=== PATIENT | female | born 1950 | race Caucasian/White ===

== ENCOUNTER 2016-06-23 11:35 | Observation (INO) | payer BC ==
[~2016-06-23] VITALS: Ht 154.9 cm; Wt 74.6 kg
[2016-06-23] MEDS: IV NORMAL SALINE 1000ML BAG 1,000 ML IV SCH (01:00)
[~2016-06-23 11:35] MED LIST: CITA20TA9 PO; LEVO50TA PO; LISI2.5T PO; METO25TA4 PO; OXYB5TAB7 PO
[2016-06-23] MEDS ORDERED: ASPI81TA2 PO (12:23)
[2016-06-23] MEDS ORDERED: LEVO75TA5 PO (12:24)
[2016-06-23] MEDS ORDERED: IV NORMAL SALINE 1000ML BAG 1,000 ML IV SCH (12:30)
[2016-06-23] MEDS ORDERED: ONDANSETRON PF 4 MG/2 ML VIAL. IV ONE (12:30)
[2016-06-23] MEDS ORDERED: FENTANYL PF 100 MCG/2 ML VIAL. IV PRN (12:30)
[2016-06-23] MEDS ORDERED: ASPIRIN 81 MG TAB.CHEW PO ONE (12:30)
--- NOTE | 2016-06-23 12:30 | PHYS DOC ---
Past Medical History Past Medical History: Hypothyroid, [place], TIA Additional Past Medical Histor: PFO CLOSURE Past Surgical History: , Hysterectomy, Knee Replacement, Tonsillectomy Additional Past Surgical Histo: RIGHT KNEE REPLACEMENT Alcohol Use: Occasionally Drug Use: None Adult General Chief Complaint Chief Complaint: CHEST PAIN HPI HPI Patient is a 65 year old female who presents with complaint of left-sided chest pain that started approximately 3 hours prior to arrival. Patient states that she was at work and started getting left-sided chest pain which has been intermittent. Patient states that the pains last for a few seconds and go away. Patient has associated shortness of breath. Patient states that these symptoms come on at rest. The patient was recently admitted to the hospital on April 2016 and diagnosed within NSTEMI. At that time the patient had cardiac catheterization which showed findings consistent with Takotsubo Syndrome but no blockages requiring stents. Patient was placed on aspirin. Patient states that she has been taking her aspirin daily but has not taken any yet today. Patient states that currently she is pain-free but has been having intermittent chest pains off and on throughout the hour. Patient denies any recent illnesses or fever. Patient states that her pain level reaches 7 out of 10 with each episode. Patient denies any exacerbating factors. Review of Systems Review of Systems Constitutional: Denies fever or chills [] Eyes: Denies change in visual acuity, redness, or eye pain [] HENT: Denies nasal congestion or sore throat [] Respiratory: Shortness of breath [] Cardiovascular: Chest pain [] GI: Denies abdominal pain, nausea, vomiting, bloody stools or diarrhea [] : Denies dysuria or hematuria [] Musculoskeletal: Denies back pain or joint pain [] Integument: Denies rash or skin lesions [] Neurologic: Denies headache, focal weakness or sensory changes [] Current Medications Current Medications Current Medications Medications (Trade) Dose Ordered Sig/Rodrigue Start Time Stop Time Status Last Admin Dose Admin Aspirin (Children'S Aspirin) 324 mg 1X ONCE 06/23/16 12:30 06/23/16 12:31 DC 06/23/16 12:30 324 MG Fentanyl Citrate 50 mcg 50 mcg PRN Q15MIN PRN 06/23/16 12:30 06/24/16 12:29 06/23/16 15:03 50 MCG Nitroglycerin (Nitrostat) 0.4 mg PRN Q5MIN PRN 06/23/16 12:30 06/24/16 12:29 06/23/16 14:11 0.4 MG Ondansetron HCl (Zofran) 4 mg 1X ONCE 06/23/16 12:30 06/23/16 12:31 DC Sodium Chloride (Iv Sodium Chloride 0.9% 1000ml Bag) 1,000 ml @ 100 mls/hr Q10H 06/23/16 12:30 06/23/16 22:29 06/23/16 15:05 100 MLS/HR Allergies Allergies Allergies Coded Allergies Type Severity Reaction Last Updated Verified No Known Drug Allergies 04/30/16 No Physical Exam Physical Exam Constitutional: Well developed, well nourished, no acute distress, non-toxic appearance. [] HENT: Normocephalic, atraumatic, bilateral external ears normal, oropharynx moist, no oral exudates, nose normal. [] Eyes: PERRLA, EOMI, conjunctiva normal, no discharge. [] Neck: Normal range of motion, no tenderness, supple, no stridor. [] Cardiovascular:Heart rate regular rhythm, no murmur [] Lungs & Thorax: Bilateral breath sounds clear to auscultation [] Abdomen: Bowel sounds normal, soft, no tenderness, no masses, no pulsatile masses. [] Skin: Warm, dry, no erythema, no rash. [] Back: No tenderness, no CVA tenderness. [] Extremities: No tenderness, no cyanosis, no clubbing, ROM intact, no edema. [] Neurologic: Alert and oriented X 3, normal motor function, normal sensory function, no focal deficits noted. [] Psychologic: Affect normal, judgement normal, mood normal. [] Current Patient Data Vital Signs Vital Signs Date Time Temp Pulse Resp B/P Pulse Ox O2 Delivery O2 Flow Rate FiO2 06/23/16 14:30 58 20 113/63 96 06/23/16 11:53 98.4 Room Air 98.4 Lab Values Laboratory Tests Test 06/23/16 13:45 White Blood Count 4.8x10^3/uL (4.0-11.0) Red Blood Count 4.73x10^6/uL (3.50-5.40) Hemoglobin 13.6g/dL (12.0-15.5) Hematocrit 40.4% (36.0-47.0) Mean Corpuscular Volume 85fL (79-100) Mean Corpuscular Hemoglobin 29pg (25-35) Mean Corpuscular Hemoglobin Concent 34g/dL (31-37) Red Cell Distribution Width 16.2% (11.5-14.5) H Platelet Count 198x10^3/uL (140-400) Neutrophils (%) (Auto) 53% (31-73) Lymphocytes (%) (Auto) 36% (24-48) Monocytes (%) (Auto) 7% (0-9) Eosinophils (%) (Auto) 2% (0-3) Basophils (%) (Auto) 1% (0-3) Neutrophils # (Auto) 2.6x10^3uL (1.8-7.7) Lymphocytes # (Auto) 1.8x10^3/uL (1.0-4.8) Monocytes # (Auto) 0.3x10^3/uL (0.0-1.1) Eosinophils # (Auto) 0.1x10^3/uL (0.0-0.7) Basophils # (Auto) 0.1x10^3/uL (0.0-0.2) Sodium Level 142mmol/L (136-145) Potassium Level 4.1mmol/L (3.5-5.1) Chloride Level 104mmol/L (98-107) Carbon Dioxide Level 28mmol/L (21-32) Anion Gap 10 (6-14) Blood Urea Nitrogen 17mg/dL (7-20) Creatinine 0.6mg/dL (0.6-1.0) Estimated GFR (Cockcroft-Gault) 101.0 Glucose Level 87mg/dL (70-99) Calcium Level 9.0mg/dL (8.5-10.1) Magnesium Level 2.2mg/dL (1.8-2.4) Total Bilirubin 0.4mg/dL (0.2-1.0) Direct Bilirubin 0.1mg/dL (0.0-0.2) Aspartate Amino Transferase (AST) 15U/L (15-37) Alanine Aminotransferase (ALT) 18U/L (14-59) Alkaline Phosphatase 69U/L (46-116) Creatine Kinase 88U/L (26-192) Creatine Kinase MB (Mass) 1.1ng/mL (0.0-3.6) Creatine Kinase MB Relative Index 1.3% (0-4) Troponin I Quantitative < 0.017ng/mL (0.000-0.055) FG-Dqv-A-Type Natriuretic Peptide 139pg/mL (0-124) H Total Protein 7.4g/dL (6.4-8.2) Albumin 3.9g/dL (3.4-5.0) Laboratory Tests 06/23/16 13:45 Laboratory Tests 06/23/16 13:45 EKG EKG Interpreted by me: Heart rate 60, sinus rhythm, prolonged QT intervals, normal axis, no acute ST/T-wave abnormalities present [] Radiology/Procedures Radiology/Procedures [facility] [address] [place] [address] IMAGING REPORT Signed PATIENT: BALDEMAR OLSEN ACCOUNT: [id number] : 1950 LOCATION: ER AGE: 65 SEX: F EXAM STATUS: REG ER ORD. PHYSICIAN: IRINEO VILLEGAS MD REASON: chest pain PROCEDURE: PORTABLE CHEST 1V Indication: Left-sided chest pain for 4 hours. Technique: AP upright portable chest radiograph was obtained. Comparison is from April 30, 2016. Findings: The lungs are clear. There is no pleural effusion. The heart is not enlarged. There is no heart failure. Bony structures are intact. There are mild degenerative changes at the right AC joint. Leads overlie the patient. Impression: No acute thoracic findings. DICTATED and SIGNED BY: SCOTT HERNANDEZ MD DATE: 06/23/16 1310 CC: IRINEO VILLEGAS MD; KEITH JENKINS ~ [] Course & Med Decision Making Course & Med Decision Making Pertinent Labs and Imaging studies reviewed. (See chart for details) Patient was given aspirin in the emergency department. The patient had multiple episodes of chest pain in the emergency department which has not resolved with treatment using fentanyl and nitroglycerin. Due to patient's persistent undifferentiated chest pain, the patient will need to be admitted for further evaluation. The patient was admitted to Dr. Muhammad under observation care. Vince Disclaimer Dragon Disclaimer This electronic medical record was generated, in whole or in part, using a voice recognition dictation system. Departure Departure Impression: Primary Impression: Chest pain Additional Impression: Takotsubo syndrome Disposition: ADMITTED INPATIENT Admitting Physician: Other Condition: STABLE Referrals: KEITH JENKINS (PCP) Problem Qualifiers Primary Impression: Chest pain Chest pain type: unspecified Qualified Code: R07.9 - Chest pain, unspecified IRINEO VILLEGAS MD Jun 23, 2016 12:30
--- NOTE | 2016-06-23 12:56 | EKG ---
[facility] [address] [place] [address] Test Date: 2016-06-23 Test Time: 11:50:50 Pat Name: BALDEMAR OLSEN Department: Room: Gender: F [employer]: : 1950 Requested By: IRINEO VILLEGAS Order Number: [id number] Reading MD: Measurements Intervals [place] Rate: 60 P: 31 [place]: 166 QRS: 5 QRSD: 84 T: 56 QT: 474 QTc: 479 Interpretive Statements SINUS RHYTHM QRS(T) CONTOUR ABNORMALITY CONSIDER ANTEROLATERAL MYOCARDIAL DAMAGE PROLONGED QT POSSIBLY ABNORMAL ECG RI6.01 No previous ECG available for comparison
--- NOTE | 2016-06-23 13:13 | RAD ---
Indication: Left-sided chest pain for 4 hours. Technique: AP upright portable chest radiograph was obtained. Comparison is from April 30, 2016. Findings: The lungs are clear. There is no pleural effusion. The heart is not enlarged. There is no heart failure. Bony structures are intact. There are mild degenerative changes at the right AC joint. Leads overlie the patient. Impression: No acute thoracic findings.
[2016-06-23] MEDS: NITROGLYCERIN SUBLINGUAL 0.4 MG BOTTLE OF 25. SL PRN ×2 (13:47→14:11)
[2016-06-23 13:54] LABS: BASO # 0.1 x10^3/uL (0.0-0.2); BASO % 1 % (0-3); EOS % 2 % (0-3); HEMATOCRIT 40.4 % (36.0-47.0); HEMOGLOBIN 13.6 g/dL (12.0-15.5); LYMPH # 1.8 x10^3/uL (1.0-4.8); LYMPH % 36 % (24-48); MEAN CORPUSCULAR HEMOGLOBIN 29 pg (25-35); MEAN CORPUSCULAR HGB CONC 34 g/dL (31-37); MEAN CORPUSCULAR VOLUME 85 fL (79-100); MONO % 7 % (0-9); NEUT % 53 % (31-73); PLATELET COUNT 198 x10^3/uL (140-400); RED BLOOD COUNT 4.73 x10^6/uL (3.50-5.40); RED CELL DISTRIBUTION WIDTH 16.2 % (11.5-14.5); WHITE BLOOD COUNT 4.8 x10^3/uL (4.0-11.0)
[2016-06-23 14:18] LABS: CREATININE 0.6 mg/dL (0.6-1.0); POTASSIUM 4.1 mmol/L (3.5-5.1)
[2016-06-23 14:23] LABS: ALBUMIN 3.9 g/dL (3.4-5.0); CKMB INDEX 1.3 % (0-4); CKMB MASS 1.1 ng/mL (0.0-3.6); DIRECT BILIRUBIN 0.1 mg/dL (0.0-0.2); MAGNESIUM 2.2 mg/dL (1.8-2.4); TOTAL BILIRUBIN 0.4 mg/dL (0.2-1.0); TOTAL PROTEIN 7.4 g/dL (6.4-8.2)
--- NOTE | 2016-06-23 14:53 | ACF ---
Admission Forms Criteria CARDIOLOGY GRG Clinical Indications for Admission to Inpatient Care ( Place 'X' for any and all applicable criteria): Hospital admission is needed for appropriate care of the patient because of ANY ONE of the following (1): [ ] I. Hemodynamic instability as indicated by ALL of the following (1)(2)(3) (4)(5) [ ]a) Vital signs or other findings not as expected for chronic patient condition or baseline [ ]b) Instability indicated by ANY ONE of the following: [ ]i) Hypotension [ ]ii) Symptomatic Tachycardia unresponsive to treatment ( e.g., analgesia, fluids, sedation as indicated) [ ]iii) Inadequate perfusion indicated by ANY ONE of the following: [ ] 1) Lactic acidosis (> 2 mmol/L) [ ] 2) New abnormal capillary refill (> 3 seconds) [ ] 3) Reduced urine output [ ] 4) New altered mental status [ ]iv) Orthostatic vital sign changes unresponsive to treatment (e.g., fluids) [ ]v) IV inotropic or vasopressor medication required to maintain adequate blood pressure or perfusion [ ] II. Severe heart failure as indicated by ANY ONE of the following(17)(18) [ ]a) Respiratory distress [ ]b) Hypotension [ ]c) Anasarca (refractory to outpatient therapy) [ ]d) Cardiac arrhythmias of immediate concern [ ]e) Myocardial ischemia [ ] III. Cardiac arrhythmias or findings of immediate concern indicated by ANY ONE of the following (19)(20): [ ] a) Heart rhythms that are inherently dangerous or unstable indicated by ANY ONE of the following (21)(22)(23): [ ] i) Resuscitated ventricular fibrillation or cardiac arrest [ ] ii) Ventricular escape rhythm [ ] iii) Sustained ventricular tachycardia (30 seconds or more of ventricular rhythm at greater than 100 beats per minute) [ ] iv) Nonsustained ventricular tachycardia and ANY ONE of the following: [ ] 1) Suspected cardiac ischemia as cause or consequence of ventricular tachycardia [ ] 2) In setting of acute myocarditis [ ] b) Unstable cardiac conduction defects indicated by ANY ONE of the following(23)(24)(25) [ ] i) Type II second-degree atrioventricular block [ ]ii) Third-degree atrioventricular block [ ]iii) New-onset left bundle branch block with suspected myocardial ischemia [ ]c) Any heart rhythm and ANY ONE of the following (21)(22)(26)(27) (28) [ ] i) Continuous long-term ECG monitoring needed (e.g., initiation of drug requiring monitoring for more than 24 hours) [ ] ii) Patient has automatic implanted cardioverter defibrillator that is repeatedly firing, malfunctioning, or in need of immediate adjustment of settings beyond the scope of ambulatory or observation care [ ]d) Heart rhythms of concern due to ANY ONE of the following: [ ] i) Hypotension [ ] ii) Respiratory distress [ ] iii) Association with other significant symptoms (e.g., bradycardia with syncope or ongoing dizziness, supraventricular tachycardia with chest pain (14)(15)(17) [ ] IV. Monitoring for cardiac contusion beyond the scope of observation care needed [A](30)(31)(32) [ ] V. Surgical or device complication (e.g., valve replacement complication , pacemaker dysfunction) (35)(41)(44)(45)(46) [ ] . Inpatient palliative care needed. [B](49) Also use Inpatient Palliative Care Criteria [ ] VII. Nonbacterial thrombotic (marantic) endocarditis (36)(43)(47)(48) [X] VIII. Cardiology condition, symptom, or finding for which emergency and observation care has failed or are not considered appropriate. [ ] IX. Acute valvular disease requiring inpatient as indicated by ANY ONE of the following (41) [ ]a) Acute valvular regurgitation (42) [ ]b) Noninfectious valvulitis (43) [ ]c) Obstructive valve thrombosis [ ]d) Paravalvular leak [ ]e) Other significant valvular disorder remaining after emergency or observation level of care (as appropriate) [ ]X. Pericardial disease requiring inpatient treatment as indicated by ANY ONE of the following (33)(34)(35)(36)(37) [ ]a) Suspected tamponade (38)(39)(40) [ ]b) Hemopericardium [ ]c) Other significant pericardial disorder remaining after emergency or observation level of care (as appropriate) [ ] XI. Cardiac ischemia beyond scope of emergency and observation care. [ ] XII. Hypertension requiring inpatient treatment as indicated by ANY ONE of the following (6)(7)(8) [ ]a) SBP greater than 220 mm Hg or DBP greater than 120 mmHg despite treatment [ ]b) SBP greater than 140 mm Hg or DBP greater than 100 mm Hg with evidence of acute end organ damage as indicated by ANY ONE of the following [ ] i) Encephalopathy [ ] ii) Acute renal failure as indicated by new onset of ANY ONE of the following (9)(10)(11)(12)(13) [ ]1) 3-fold rise in serum creatinine from baseline [ ]2) Serum creatinine greater than 4 mg/dL ( 354 micromoles/L) with acute rise greater than 0.5 mg/dL (44.2 micromoles/L) [ ]3) Reduction of more than 75% in estimated glomerular filtration rate from baseline [ ]4) Estimated glomerular filtration rate less than 35 mL/min/1.73m2 (0.59 mL/sec/1.73m2) in child up to 18 years of age [ ]5) Cessation of urine output indicated by ALL of the following [ ]A. Adequate volume status [ ]B. Inadequate urine output as indicated by ANY ONE of the following [ ]a. Urine output less than 0.3 mL/kg/hr for 24 hours [ ]b. Anuria (urine output less than 0.1 mL/kg/hr) for 12 hours [ ] iii) Aortic dissection [ ] iv) Myocardial Ischemia [ ] v) Left ventricular heart failure [ ]vi) Retinal Hemorrhage [ ]vii) Other significant finding [ ]c) Hypertension in child requiring inpatient treatment as indicated by ALL of the following(14)(15)(16) [ ] i) Outpatient treatment not effective, not available, or not appropriate [ ]ii) SBP or DBP greater than 95th percentile for age [ ]iii) Evidence of acute end organ damage as indicated by ANY ONE of the following [ ]1) Altered mental status [ ]2) Acute renal failure as indicated by new onset of ANY ONE of the following(9)(10)(11)(12)(13) [ ]A. 3-fold rise in serum creatinine from baseline [ ]B. Serum creatinine greater than 4 mg/dL (354 micromoles/L) with acute rise greater than 0.5 mg/dL (44.2 micromoles/L) [ ]C. Reduction of more than 75% in estimated glomerular filtration rate from baseline [ ]D. Estimated glomerular filtration rate less than 35 mL/min/1.73m2 (0.59 mL/sec/1.73m2) in child up to 18 years of age [ ]E. Cessation of urine output indicated by ALL of the following [ ]a. Adequate volume status [ ]b. Inadequate urine output as indicated by ANY ONE of the following [ ]i) Urine output less than 0.3 mL/kg/hr for 24 hours [ ]ii) Anuria ( urine output less than 0.1 mL/kg/hr) for 12 hours [ ]3) Severe headache [ ]4) Visual disturbance [ ]5) Retinal hemorrhage [ ]6) Other significant finding [ ]XIII. Complications of transplanted heart indicated by ANY ONE of the following(61): [ ]a) Acute graft rejection requiring inpatient management (eg, intravenous immunosuppression)(62)(63) [ ]b) Acute graft heart failure indicated by ANY ONE of the following(64): [ ]i) Hemodynamic instability [ ]ii) Cardiac arrhythmias of immediate concern [ ]iii) Pulmonary edema that is very severe (eg, mechanical ventilation needed, imminent or likely, need for 100% oxygen to keep oxygen saturation above 90%) [ ]iv) Pulmonary edema that is persistent as indicated by ALL of the following: [ ]1) New need for oxygen therapy to keep oxygen saturation above 90% (or increased FiO2 need from baseline) [ ]2) Has not improved sufficiently with emergency department or observation care IV diuretics or other heart failure treatments[E] [ ]v) Altered mental status that is severe or persistent [ ]vi) Increased creatinine (new on laboratory test) with reduction of more than 50% in estimated glomerular filtration rate from baseline [ ]vii) Progressively (ongoing) rising creatinine (known from past laboratory test) with reduction of more than 25% in estimated glomerular filtration rate from baseline [ ]viii) Acute renal failure [ ]ix) Acute peripheral ischemia (eg, examination shows pulseless, cool, mottled, or cyanotic extremity) [ ]x) Pulmonary artery catheter monitoring needed [ ]xi) Other sign or symptom of heart failure requiring inpatient treatment (ie, too severe or not responsive to outpatient and observation care treatment) [ ]c) Infection requiring inpatient management (eg, Hemodynamic instability, need for intravenous antimicrobial treatment)(66)(67)(68)(69)(70) [ ]d) Cardiac allograft vasculopathy requiring inpatient management ( eg evidence of cardiac ischemia)(71) [ ]e) Other complication of transplanted heart (eg, stroke, severe pulmonary hypertension, severe valvular dysfunction) requiring inpatient management(72) The original [facility] content created by [facility] has been revised. The portions of the content which have been revised are identified through the use of italic text or in bold, and [facility] has neither reviewed nor approved the modified material. All other unmodified content is copyright [facility]. Please see references footnoted in the original [facility] edition 2016 Admission Criteria Met?: Yes FATEMEH IBARRA Jun 23, 2016 14:53
[2016-06-23] MEDS ORDERED: ONDANSETRON PF 4 MG/2 ML VIAL. IV PRN (15:15)
[2016-06-23] MEDS ORDERED: ACETAMINOPHEN 325 MG TABLET. PO PRN (15:15)
--- NOTE | 2016-06-23 15:49 | PDOC2 ---
CARDIAC CONSULT DATE OF CONSULT Date of Consult DATE: 06/23/16 TIME: 15:31 REASON FOR CONSULT Reason for Consult: Chest pain REFERRING PHYSICIAN Referring Physician: Carlos SOURCE Source: Chart review, Patient HISTORY OF PRESENT ILLNESS HISTORY OF PRESENT ILLNESS This is a pleasant 65 yo female admitted for complains of chest pain. 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 This requires lifting but only about 10 pounds a carry not too heavy. At work today , she started having this left sharp chest pain that is described as shooting pain lasting only for a few seconds with each burst and actually she had this while I was evaluating her and occurring intermittently. There was no associated symptoms of nausea, palpitations, nor SOA. No SANTIAGO. Denies any nausea or vomiting. No heartburn nor throat irritation. She does take tums occasionally. Denies any recent falls or injury and to this point her anxiety is controlled and denies any significant stress. She was recently seen in our office for preop evaluation for upcoming knee replacement and was told to wait for a few more months to give her heart sometime to heal further. She had Takotsubo confirmed via C in 04/2016 which is likely induced by grief induced by the passing of her brother. She has been complaint with her cardiac medications. PAST MEDICAL HISTORY Cardiovascular: CAD (recent LHC with mild disease), HTN, Hyperlipidemia, Other (PFO with closure; NICM (takotsubo)) Pulmonary: No pertinent hx CENTRAL NERVOUS SYSTEM: TIA GI: GERD Heme/Onc: No pertinent hx Hepatobiliary: No pertinent hx Psych: Anxiety Musculoskeletal: Osteoarthritis Infectious disease: No pertinent hx ENT: No pertinent hx Renal/: Urinary Incontinence Endocrine: Hypothyroidism Dermatology: No pertinent hx PAST SURGICAL HISTORY Past Surgical History: , Total knee replacement (right), Tonsillectomy , Hysterectomy, Other (PFO closure) FAMILY HISTORY Family History: Coronary Artery Disease SOCIAL HISTORY Smoke: No ALCOHOL: none Drugs: None Lives: with Family CURRENT MEDICATIONS CURRENT MEDICATIONS Current Medications Medications (Trade) Dose Ordered Sig/Rodrigue Route PRN Reason Start Time Stop Time Status Last Admin Dose Admin Aspirin (Children'S Aspirin) 324 mg 1X ONCE PO 06/23/16 12:30 06/23/16 12:31 DC 06/23/16 12:30 Nitroglycerin (Nitrostat) 0.4 mg PRN Q5MIN PRN SL CP RATING > 1/10 06/23/16 12:30 06/24/16 12:29 06/23/16 14:11 Fentanyl Citrate 50 mcg 50 mcg PRN Q15MIN PRN IV PAIN GREATER THAN 3/10 06/23/16 12:30 06/24/16 12:29 06/23/16 15:03 Sodium Chloride (Iv Sodium Chloride 0.9% 1000ml Bag) 1,000 ml @ 100 mls/hr Q10H IV 06/23/16 12:30 06/23/16 22:29 06/23/16 15:05 ALLERGIES ALLERGIES: Coded Allergies: No Known Drug Allergies (Unverified , 04/30/16) ROS Review of System 14 point ROS evaluated with pertinent positives noted per HPI PHYSICAL EXAM General: Alert, Oriented X3, Cooperative, No acute distress HEENT: Atraumatic, Mucous membr. moist/pink Lungs: Clear to auscultation, Normal air movement Heart: Regular rate, Normal S1, Normal S2, Other (2/6 systolic murmur to LLS border) Abdomen: Soft, No tenderness Extremities: No cyanosis, No edema Skin: No breakdown, No significant lesion Neuro: Normal speech, Sensation intact Psych/Mental Status: Mental status NL, Mood NL MUSCULOSKELETAL: Osteoarthritic changes both hands VITALS VITALS Vital Signs Date Time Temp Pulse Resp B/P Pulse Ox O2 Delivery O2 Flow Rate FiO2 06/23/16 15:03 12 06/23/16 14:30 58 113/63 96 06/23/16 11:53 98.4 Room Air 98.4 LABS Lab: Laboratory Tests Test 06/23/16 13:45 White Blood Count 4.8x10^3/uL (4.0-11.0) Red Blood Count 4.73x10^6/uL (3.50-5.40) Hemoglobin 13.6g/dL (12.0-15.5) Hematocrit 40.4% (36.0-47.0) Mean Corpuscular Volume 85fL (79-100) Mean Corpuscular Hemoglobin 29pg (25-35) Mean Corpuscular Hemoglobin Concent 34g/dL (31-37) Red Cell Distribution Width 16.2% (11.5-14.5) Platelet Count 198x10^3/uL (140-400) Neutrophils (%) (Auto) 53% (31-73) Lymphocytes (%) (Auto) 36% (24-48) Monocytes (%) (Auto) 7% (0-9) Eosinophils (%) (Auto) 2% (0-3) Basophils (%) (Auto) 1% (0-3) Neutrophils # (Auto) 2.6x10^3uL (1.8-7.7) Lymphocytes # (Auto) 1.8x10^3/uL (1.0-4.8) Monocytes # (Auto) 0.3x10^3/uL (0.0-1.1) Eosinophils # (Auto) 0.1x10^3/uL (0.0-0.7) Basophils # (Auto) 0.1x10^3/uL (0.0-0.2) Sodium Level 142mmol/L (136-145) Potassium Level 4.1mmol/L (3.5-5.1) Chloride Level 104mmol/L (98-107) Carbon Dioxide Level 28mmol/L (21-32) Anion Gap 10 (6-14) Blood Urea Nitrogen 17mg/dL (7-20) Creatinine 0.6mg/dL (0.6-1.0) Estimated GFR (Cockcroft-Gault) 101.0 Glucose Level 87mg/dL (70-99) Calcium Level 9.0mg/dL (8.5-10.1) Magnesium Level 2.2mg/dL (1.8-2.4) Total Bilirubin 0.4mg/dL (0.2-1.0) Direct Bilirubin 0.1mg/dL (0.0-0.2) Aspartate Amino Transf (AST/SGOT) 15U/L (15-37) Alanine Aminotransferase (ALT/SGPT) 18U/L (14-59) Alkaline Phosphatase 69U/L (46-116) Creatine Kinase 88U/L (26-192) Creatine Kinase MB (Mass) 1.1ng/mL (0.0-3.6) Creatine Kinase MB Relative Index 1.3% (0-4) Troponin I Quantitative < 0.017ng/mL (0.000-0.055) WJ-Lyi-X-Type Natriuretic Peptide 139pg/mL (0-124) Total Protein 7.4g/dL (6.4-8.2) Albumin 3.9g/dL (3.4-5.0) ECHOCARDIOGRAM ECHOCARDIOGRAM <Conclusion> The left ventricle is normal size. Left ventricle systolic function is overall normal. The Ejection Fraction is 50-55%. Mild apical septal hypokinesis. There is no significant aortic valvular stenosis. Doppler and Color Flow revealed trace aortic regurgitation. Doppler and Color Flow revealed trace mitral regurgitation. Doppler and Color Flow revealed mild tricuspid regurgitation. The PA pressure was estimated at 45 mmHg. DATE: 05/02/16 1451 HEART CATH HEART CATH Conclusion 1.) Classic findings on the LV-gram for Takotsubo Syndrome. EF estimated at 25- 30%. No MR was noted. 2.) LM was unremarkable. Only mild scattered irregularities were noted in the LAD. The Cx was small with moderate tortuousities in the Mid-distal portions, but was otherwise was unremarkable. The RCA was Dominant and only minor scattered irregularities were noted. 3.) LVEDP was at the upper limits of normal. No pull-back gradient was noted across the AV/LVOFT 4.) Incidental finding of a PFO closure device. Medications Administered KIKA Inhibitor (any) Aspirin (any) Beta Em (any) Statin (any) DATE: 05/01/162021 ASSESSMENT/PLAN ASSESSMENT/PLAN 1. Atypical Chest pain: initial troponin normal, trending. EKG SR without significant acute changes. Doubt ACS. Reproducible tenderness to left chest. Likely MSK. Transdermal lidoderm x1. Defer to PCP. 2. Hx of NICM- Takotsubo syndrome: Noted via C 05/01/2016 with significant recovery within 24 hours with f/u TTE EF of 50-55% 3. CAD: mild disease per recent C. Continue with secondary prevention. ASA. Lipids with normalcy and on goal from last check. Currently off statin. Lipid panel in AM. 4. HTN: controlled. BB/ACEi 5. Hypothyroidism: on replacement. TSH 0.09 on 04/2016. Will recheck. 6. Hx of anxiety 7. Hx of TIA with PFO closure Problems: LARRY PEÑA APRN Jun 23, 2016 15:49
[2016-06-23 16:20] VITALS: BP 134/79
[2016-06-23] MEDS: ASPIRIN 81 MG TAB.CHEW PO SCH (17:00)
[2016-06-23] MEDS ORDERED: LIDOCAINE (700MG/PATCH) PATCH. TD ONE (17:00)
[2016-06-23] MEDS: LISINOPRIL 2.5 MG TABLET PO SCH (18:28)
[2016-06-23 19:00] VITALS: BP 104/59
[2016-06-23] MEDS: OXYBUTYNIN CHLORIDE 5 MG TABLET PO SCH (20:55)
[2016-06-23] MEDS: METOPROLOL TART IMMED RELEASE 25 MG TABLET PO SCH (21:00)
[2016-06-23 23:00] VITALS: BP 100/62
[2016-06-24] MEDS: FENTANYL PF 100 MCG/2 ML VIAL. IV PRN ×2 (00:51→12:43)
--- NOTE | 2016-06-24 02:03 | HP ---
ADMIT DATE: 06/23/2016 CHIEF COMPLAINT: Chest pain. HISTORY OF PRESENT ILLNESS: The patient is a 65-year-old woman with history of CAD, recent evaluation in April of this year when she was diagnosed with Takotsubo myopathy. She relates that she actually had seen Dr. Ling just last week for an outpatient followup and had been doing fine. This morning, however, she started having sharp chest pains in the same area that she had her pain just 1 month ago. She relates that the pain lasts just for a few seconds and is gone. However, when this recurred over 10 times during the day, she decided to present to the hospital for further workup. On questioning she denies any associated shortness of breath, any palpitations, any nausea or any radiation of the pain anywhere else. She denies any recent infections, fevers, chills. PAST MEDICAL HISTORY: Takotsubo as above, history of patent foramen ovale, status post closure, hypertension, hyperlipidemia, osteoarthritis. PAST SURGICAL HISTORY: Status post TKR on the right, hysterectomy, tonsillectomy and . FAMILY HISTORY: CAD, brother of [place] in 04/2016. SOCIAL HISTORY: Lives with her , works in a [employer] business. No toxic habits, never smoked. ALLERGIES: No known drug allergies. MEDICATIONS: MAR reconciled with home medications. REVIEW OF SYSTEMS: Essentially positive only for chest pain as above. Rest of organ system review is completely negative. PHYSICAL EXAMINATION: VITAL SIGNS: Blood pressure of 134/79, heart rate 55, respiratory rate at 18. She is afebrile. GENERAL: This is a 65-year-old woman, awake, alert, in no acute distress, very pleasant, slightly anxious, however. HEENT: Shows no scleral icterus. NECK: Supple, without any lymphadenopathy. LUNGS: Clear to auscultation bilaterally. CARDIOVASCULAR: Regular rate and rhythm without any murmurs. ABDOMEN: Has positive bowel sounds, soft, nontender. EXTREMITIES: Show no edema. SKIN: Warm, soft and dry without any rash. LABORATORY DATA: CBC from today shows a WBC of 4.8, hemoglobin 13.6, platelets of 198, normal differential. Chemistries with a BUN and creatinine of 17 and 0.6, normal electrolytes, normal LFTs. Initial troponin is negative. ProBNP minimally elevated at 139. TSH during previous admission was severely depressed. Repeat is pending. IMAGING STUDIES: Chest x-ray from today shows no acute thoracic findings. ASSESSMENT AND PLAN: The patient is a 65-year-old woman with recent diagnosis of Takotsubo cardiomyopathy who now presents with a very short burst of chest pain over her left chest. Although she affirms that pain is exactly the same in location and quality as her pain that led to her diagnosis in April, I doubt that this is related. Cardiology has been consulted. Suspicion is for musculoskeletal pain rather than angina. Lidocaine patch has been applied. In the meantime, obviously will still rule out acute coronary syndrome. She does have mild coronary artery disease per catheterization in 04/2016. The patient has hypothyroidism and is on replacement. Previous TSH a month ago was actually significantly low. Synthroid has been adjusted. will repeat TSH. Will continue all other home medications. KURTIS ADAMS MD DR: ADA/nts JOB#: [id number] / [id number] KEITH Fernandez DO MTDD
[2016-06-24 03:03] VITALS: BP 135/74
[2016-06-24 06:08] LABS: BASO % 1 % (0-3); EOS % 3 % (0-3); HEMATOCRIT 37.2 % (36.0-47.0); HEMOGLOBIN 12.4 g/dL (12.0-15.5); LYMPH # 2.1 x10^3/uL (1.0-4.8); LYMPH % 37 % (24-48); MEAN CORPUSCULAR HEMOGLOBIN 29 pg (25-35); MEAN CORPUSCULAR HGB CONC 33 g/dL (31-37); MEAN CORPUSCULAR VOLUME 87 fL (79-100); MONO % 9 % (0-9); NEUT % 51 % (31-73); PLATELET COUNT 189 x10^3/uL (140-400); RED BLOOD COUNT 4.29 x10^6/uL (3.50-5.40); WHITE BLOOD COUNT 5.6 x10^3/uL (4.0-11.0)
[2016-06-24 06:44] LABS: CALCIUM 8.2 mg/dL (8.5-10.1); CREATININE 0.7 mg/dL (0.6-1.0); GFR 84.5; POTASSIUM 3.6 mmol/L (3.5-5.1)
[2016-06-24] MEDS ORDERED: LEVOTHYROXINE 75 MCG TABLET PO SCH (07:00)
[2016-06-24 07:10] LABS: CHOLESTEROL/HDL RATIO 3.3
[2016-06-24 07:20] VITALS: BP 131/80
[2016-06-24] MEDS: OXYBUTYNIN CHLORIDE 5 MG TABLET PO SCH (08:36)
[2016-06-24] MEDS: ASPIRIN 81 MG TAB.CHEW PO SCH (08:36)
[2016-06-24] MEDS: LISINOPRIL 2.5 MG TABLET PO SCH (08:37)
[2016-06-24] MEDS: METOPROLOL TART IMMED RELEASE 25 MG TABLET PO SCH (08:37)
[2016-06-24] MEDS ORDERED: CITALOPRAM 20 MG TABLET. PO SCH (09:00)
[2016-06-24] MEDS: IV NORMAL SALINE 1000ML BAG 1,000 ML IV SCH ×2 (09:19→10:37)
--- NOTE | 2016-06-24 09:30 | PDOC ---
PROGRESS NOTES Chief Complaint Chief Complaint Chest pain ASSESSMENT AND PLAN: 1. Chest pain: ongoing. not cardiac. appreciate cardiac input. rpt echo WNL 2. Hypothyroidism: previous TSH very low. rpt today very high... taking synthroid in PM rather than prescribed. d/w her. keep dose, nned recheck in 4 weeks w/ PCP 3. ?compliance with med regimen as prescribed 4. Dispo: home today Vitals Vitals Vital Signs Date Time Temp Pulse Resp B/P Pulse Ox O2 Delivery O2 Flow Rate FiO2 06/24/16 08:37 68 131/80 06/24/16 08:00 Room Air 06/24/16 07:20 97.7 16 96 97.7 Physical Exam General: Alert, Oriented X3, Cooperative, No acute distress Heart: Regular rate, Normal S1, Normal S2, Other (2/6 systolic murmur to LLS border) Lungs: Clear, Other Abdomen: Soft, No tenderness Extremities: No cyanosis, No edema Skin: No breakdown, No significant lesion Labs LABS Laboratory Tests Test 06/23/16 13:45 06/23/16 21:30 06/24/16 05:00 White Blood Count 4.8x10^3/uL (4.0-11.0) 5.6x10^3/uL (4.0-11.0) Red Blood Count 4.73x10^6/uL (3.50-5.40) 4.29x10^6/uL (3.50-5.40) Hemoglobin 13.6g/dL (12.0-15.5) 12.4g/dL (12.0-15.5) Hematocrit 40.4% (36.0-47.0) 37.2% (36.0-47.0) Mean Corpuscular Volume 85fL (79-100) 87fL (79-100) Mean Corpuscular Hemoglobin 29pg (25-35) 29pg (25-35) Mean Corpuscular Hemoglobin Concent 34g/dL (31-37) 33g/dL (31-37) Red Cell Distribution Width 16.2% (11.5-14.5) 16.0% (11.5-14.5) Platelet Count 198x10^3/uL (140-400) 189x10^3/uL (140-400) Neutrophils (%) (Auto) 53% (31-73) 51% (31-73) Lymphocytes (%) (Auto) 36% (24-48) 37% (24-48) Monocytes (%) (Auto) 7% (0-9) 9% (0-9) Eosinophils (%) (Auto) 2% (0-3) 3% (0-3) Basophils (%) (Auto) 1% (0-3) 1% (0-3) Neutrophils # (Auto) 2.6x10^3uL (1.8-7.7) 2.8x10^3uL (1.8-7.7) Lymphocytes # (Auto) 1.8x10^3/uL (1.0-4.8) 2.1x10^3/uL (1.0-4.8) Monocytes # (Auto) 0.3x10^3/uL (0.0-1.1) 0.5x10^3/uL (0.0-1.1) Eosinophils # (Auto) 0.1x10^3/uL (0.0-0.7) 0.1x10^3/uL (0.0-0.7) Basophils # (Auto) 0.1x10^3/uL (0.0-0.2) 0.0x10^3/uL (0.0-0.2) Sodium Level 142mmol/L (136-145) 144mmol/L (136-145) Potassium Level 4.1mmol/L (3.5-5.1) 3.6mmol/L (3.5-5.1) Chloride Level 104mmol/L (98-107) 108mmol/L (98-107) Carbon Dioxide Level 28mmol/L (21-32) 26mmol/L (21-32) Anion Gap 10 (6-14) 10 (6-14) Blood Urea Nitrogen 17mg/dL (7-20) 17mg/dL (7-20) Creatinine 0.6mg/dL (0.6-1.0) 0.7mg/dL (0.6-1.0) Estimated GFR (Cockcroft-Gault) 101.0 84.5 Glucose Level 87mg/dL (70-99) 95mg/dL (70-99) Calcium Level 9.0mg/dL (8.5-10.1) 8.2mg/dL (8.5-10.1) Magnesium Level 2.2mg/dL (1.8-2.4) Total Bilirubin 0.4mg/dL (0.2-1.0) Direct Bilirubin 0.1mg/dL (0.0-0.2) Aspartate Amino Transf (AST/SGOT) 15U/L (15-37) Alanine Aminotransferase (ALT/SGPT) 18U/L (14-59) Alkaline Phosphatase 69U/L (46-116) Creatine Kinase 88U/L (26-192) Creatine Kinase MB (Mass) 1.1ng/mL (0.0-3.6) Creatine Kinase MB Relative Index 1.3% (0-4) Troponin I Quantitative < 0.017ng/mL (0.000-0.055) < 0.017ng/mL (0.000-0.055) < 0.017ng/mL (0.000-0.055) YR-Lor-G-Type Natriuretic Peptide 139pg/mL (0-124) Total Protein 7.4g/dL (6.4-8.2) Albumin 3.9g/dL (3.4-5.0) Triglycerides Level 106mg/dL (0-150) Cholesterol Level 233mg/dL (0-200) LDL Cholesterol, Calculated 142mg/dL (0-100) VLDL Cholesterol, Calculated 21mg/dL (0-40) HDL Cholesterol 70mg/dL (40-60) Cholesterol/HDL Ratio 3.3 Thyroid Stimulating Hormone (TSH) 43.487uIU/mL (0.358-3.74) Review of Systems Review of Systems CP fleeting, persisting Comment Review of Relevant I have reviewed the following items avila (where applicable) has been applied. Labs Laboratory Tests Test 06/23/16 13:45 06/23/16 21:30 06/24/16 05:00 White Blood Count 4.8x10^3/uL (4.0-11.0) 5.6x10^3/uL (4.0-11.0) Red Blood Count 4.73x10^6/uL (3.50-5.40) 4.29x10^6/uL (3.50-5.40) Hemoglobin 13.6g/dL (12.0-15.5) 12.4g/dL (12.0-15.5) Hematocrit 40.4% (36.0-47.0) 37.2% (36.0-47.0) Mean Corpuscular Volume 85fL (79-100) 87fL (79-100) Mean Corpuscular Hemoglobin 29pg (25-35) 29pg (25-35) Mean Corpuscular Hemoglobin Concent 34g/dL (31-37) 33g/dL (31-37) Red Cell Distribution Width 16.2% (11.5-14.5) 16.0% (11.5-14.5) Platelet Count 198x10^3/uL (140-400) 189x10^3/uL (140-400) Neutrophils (%) (Auto) 53% (31-73) 51% (31-73) Lymphocytes (%) (Auto) 36% (24-48) 37% (24-48) Monocytes (%) (Auto) 7% (0-9) 9% (0-9) Eosinophils (%) (Auto) 2% (0-3) 3% (0-3) Basophils (%) (Auto) 1% (0-3) 1% (0-3) Neutrophils # (Auto) 2.6x10^3uL (1.8-7.7) 2.8x10^3uL (1.8-7.7) Lymphocytes # (Auto) 1.8x10^3/uL (1.0-4.8) 2.1x10^3/uL (1.0-4.8) Monocytes # (Auto) 0.3x10^3/uL (0.0-1.1) 0.5x10^3/uL (0.0-1.1) Eosinophils # (Auto) 0.1x10^3/uL (0.0-0.7) 0.1x10^3/uL (0.0-0.7) Basophils # (Auto) 0.1x10^3/uL (0.0-0.2) 0.0x10^3/uL (0.0-0.2) Sodium Level 142mmol/L (136-145) 144mmol/L (136-145) Potassium Level 4.1mmol/L (3.5-5.1) 3.6mmol/L (3.5-5.1) Chloride Level 104mmol/L (98-107) 108mmol/L (98-107) Carbon Dioxide Level 28mmol/L (21-32) 26mmol/L (21-32) Anion Gap 10 (6-14) 10 (6-14) Blood Urea Nitrogen 17mg/dL (7-20) 17mg/dL (7-20) Creatinine 0.6mg/dL (0.6-1.0) 0.7mg/dL (0.6-1.0) Estimated GFR (Cockcroft-Gault) 101.0 84.5 Glucose Level 87mg/dL (70-99) 95mg/dL (70-99) Calcium Level 9.0mg/dL (8.5-10.1) 8.2mg/dL (8.5-10.1) Magnesium Level 2.2mg/dL (1.8-2.4) Total Bilirubin 0.4mg/dL (0.2-1.0) Direct Bilirubin 0.1mg/dL (0.0-0.2) Aspartate Amino Transf (AST/SGOT) 15U/L (15-37) Alanine Aminotransferase (ALT/SGPT) 18U/L (14-59) Alkaline Phosphatase 69U/L (46-116) Creatine Kinase 88U/L (26-192) Creatine Kinase MB (Mass) 1.1ng/mL (0.0-3.6) Creatine Kinase MB Relative Index 1.3% (0-4) Troponin I Quantitative < 0.017ng/mL (0.000-0.055) < 0.017ng/mL (0.000-0.055) < 0.017ng/mL (0.000-0.055) ST-Mxf-Z-Type Natriuretic Peptide 139pg/mL (0-124) Total Protein 7.4g/dL (6.4-8.2) Albumin 3.9g/dL (3.4-5.0) Triglycerides Level 106mg/dL (0-150) Cholesterol Level 233mg/dL (0-200) LDL Cholesterol, Calculated 142mg/dL (0-100) VLDL Cholesterol, Calculated 21mg/dL (0-40) HDL Cholesterol 70mg/dL (40-60) Cholesterol/HDL Ratio 3.3 Thyroid Stimulating Hormone (TSH) 43.487uIU/mL (0.358-3.74) Laboratory Tests Test 06/23/16 13:45 06/23/16 21:30 06/24/16 05:00 White Blood Count 4.8x10^3/uL (4.0-11.0) 5.6x10^3/uL (4.0-11.0) Red Blood Count 4.73x10^6/uL (3.50-5.40) 4.29x10^6/uL (3.50-5.40) Hemoglobin 13.6g/dL (12.0-15.5) 12.4g/dL (12.0-15.5) Hematocrit 40.4% (36.0-47.0) 37.2% (36.0-47.0) Mean Corpuscular Volume 85fL (79-100) 87fL (79-100) Mean Corpuscular Hemoglobin 29pg (25-35) 29pg (25-35) Mean Corpuscular Hemoglobin Concent 34g/dL (31-37) 33g/dL (31-37) Red Cell Distribution Width 16.2% (11.5-14.5) 16.0% (11.5-14.5) Platelet Count 198x10^3/uL (140-400) 189x10^3/uL (140-400) Neutrophils (%) (Auto) 53% (31-73) 51% (31-73) Lymphocytes (%) (Auto) 36% (24-48) 37% (24-48) Monocytes (%) (Auto) 7% (0-9) 9% (0-9) Eosinophils (%) (Auto) 2% (0-3) 3% (0-3) Basophils (%) (Auto) 1% (0-3) 1% (0-3) Neutrophils # (Auto) 2.6x10^3uL (1.8-7.7) 2.8x10^3uL (1.8-7.7) Lymphocytes # (Auto) 1.8x10^3/uL (1.0-4.8) 2.1x10^3/uL (1.0-4.8) Monocytes # (Auto) 0.3x10^3/uL (0.0-1.1) 0.5x10^3/uL (0.0-1.1) Eosinophils # (Auto) 0.1x10^3/uL (0.0-0.7) 0.1x10^3/uL (0.0-0.7) Basophils # (Auto) 0.1x10^3/uL (0.0-0.2) 0.0x10^3/uL (0.0-0.2) Sodium Level 142mmol/L (136-145) 144mmol/L (136-145) Potassium Level 4.1mmol/L (3.5-5.1) 3.6mmol/L (3.5-5.1) Chloride Level 104mmol/L (98-107) 108mmol/L (98-107) Carbon Dioxide Level 28mmol/L (21-32) 26mmol/L (21-32) Anion Gap 10 (6-14) 10 (6-14) Blood Urea Nitrogen 17mg/dL (7-20) 17mg/dL (7-20) Creatinine 0.6mg/dL (0.6-1.0) 0.7mg/dL (0.6-1.0) Estimated GFR (Cockcroft-Gault) 101.0 84.5 Glucose Level 87mg/dL (70-99) 95mg/dL (70-99) Calcium Level 9.0mg/dL (8.5-10.1) 8.2mg/dL (8.5-10.1) Magnesium Level 2.2mg/dL (1.8-2.4) Total Bilirubin 0.4mg/dL (0.2-1.0) Direct Bilirubin 0.1mg/dL (0.0-0.2) Aspartate Amino Transf (AST/SGOT) 15U/L (15-37) Alanine Aminotransferase (ALT/SGPT) 18U/L (14-59) Alkaline Phosphatase 69U/L (46-116) Creatine Kinase 88U/L (26-192) Creatine Kinase MB (Mass) 1.1ng/mL (0.0-3.6) Creatine Kinase MB Relative Index 1.3% (0-4) Troponin I Quantitative < 0.017ng/mL (0.000-0.055) < 0.017ng/mL (0.000-0.055) < 0.017ng/mL (0.000-0.055) RS-Mmk-L-Type Natriuretic Peptide 139pg/mL (0-124) Total Protein 7.4g/dL (6.4-8.2) Albumin 3.9g/dL (3.4-5.0) Triglycerides Level 106mg/dL (0-150) Cholesterol Level 233mg/dL (0-200) LDL Cholesterol, Calculated 142mg/dL (0-100) VLDL Cholesterol, Calculated 21mg/dL (0-40) HDL Cholesterol 70mg/dL (40-60) Cholesterol/HDL Ratio 3.3 Thyroid Stimulating Hormone (TSH) 43.487uIU/mL (0.358-3.74) Medications Current Medications Aspirin (Children'S Aspirin) 324 mg 1X ONCE PO Last administered on 06/23/16 12:30; Start 06/23/16 at 12:30; Stop 06/23/16 at 12:31; Status DC Nitroglycerin (Nitrostat) 0.4 mg PRN Q5MIN PRN SL CP RATING > 1/10 Last administered on 06/23/16 14:11; Start 06/23/16 at 12:30; Stop 06/24/16 at 12:29 Fentanyl Citrate 50 mcg 50 mcg PRN Q15MIN PRN IV PAIN GREATER THAN 3/10 Last administered on 06/23/16 15:03; Start 06/23/16 at 12:30; Stop 06/24/16 at 12:29 Sodium Chloride (Iv Sodium Chloride 0.9% 1000ml Bag) 1,000 ml @ 100 mls/hr Q10H IV Last administered on 06/23/16 15:05; Start 06/23/16 at 12:30; Stop at 22:29; Status DC Ondansetron HCl (Zofran) 4 mg 1X ONCE IV ; Start 06/23/16 at 12:30; Stop at 12:31; Status DC Ondansetron HCl (Zofran) 4 mg PRN Q8HRS PRN IV NAUSEA/VOMITING; Start 06/23/16 at 15:15; Stop 06/24/16 at 15:14 Fentanyl Citrate 50 mcg 50 mcg PRN Q2HR PRN IV PAIN Last administered on 00:51; Start 06/23/16 at 15:15; Stop 06/24/16 at 15:14 Sodium Chloride (Iv Sodium Chloride 0.9% 1000ml Bag) 1,000 ml @ 100 mls/hr Q10H IV Last administered on 06/24/16 09:19; Start 06/23/16 at 15:30; Stop at 15:29 Acetaminophen (Tylenol) 650 mg PRN Q4HRS PRN PO FEVER; Start 06/23/16 at 15:15; Stop 06/24/16 at 15:14 Aspirin (Children'S Aspirin) 81 mg DAILY PO Last administered on 06/24/16 08:36 ; Start 06/23/16 at 17:00 Lisinopril (Prinivil) 2.5 mg DAILY PO Last administered on 06/24/16 08:37; Start 06/23/16 at 17:00 Metoprolol Tartrate (Lopressor) 12.5 mg BID PO Last administered on 06/24/16 08 :37; Start 06/23/16 at 21:00 Lidocaine (Lidoderm) 1 patch 1X ONCE TD Last administered on 06/23/16 18:28; Start 06/23/16 at 17:00; Stop 06/23/16 at 17:01; Status DC Citalopram Hydrobromide (Celexa) 20 mg DAILY PO Last administered on 06/24/16 09:18; Start 06/24/16 at 09:00 Levothyroxine Sodium (Synthroid) 75 mcg DAILY07 PO Last administered on 06:12; Start 06/24/16 at 07:00 Oxybutynin Chloride (Ditropan) 5 mg BID PO Last administered on 06/24/16 08:36 ; Start 06/23/16 at 21:00 Active Scripts Active Reported Levothyroxine Sodium 75 Mcg Tablet 1 Tab PO DAILY Aspirin 81 Mg Tab.chew 1 Tab PO DAILY Metoprolol Tartrate 25 Mg Tablet 0.5 Tab PO BID Lisinopril 2.5 Mg Tablet 1 Tab PO DAILY Celexa (Citalopram Hydrobromide) 20 Mg Tablet 20 Mg PO DAILY Oxybutynin Chloride 5 Mg Tablet 5 Mg PO BID Vitals/I & O Vital Sign - Last 24 Hours 06/23/16 06/23/16 06/23/16 06/23/16 11:53 12:30 13:00 13:30 Temp 98.4 98.4 Pulse 60 62 60 54 Resp 22 14 14 17 B/P 150/96 140/81 133/76 157/78 Pulse Ox 97 94 94 97 O2 Delivery Room Air 06/23/16 06/23/16 06/23/16 06/23/16 13:47 14:00 14:11 14:30 Pulse 58 56 56 58 Resp 15 20 B/P 157/78 146/79 146/79 113/63 Pulse Ox 97 96 06/23/16 06/23/16 06/23/16 06/23/16 15:03 16:20 16:45 18:28 Temp 97.7 97.7 Pulse 55 55 Resp 12 18 B/P 134/79 134/79 Pulse Ox 96 O2 Delivery Room Air Room Air 06/23/16 06/23/16 06/23/16 06/23/16 19:00 20:00 21:00 23:00 Temp 95.7 97.8 95.7 97.8 Pulse 67 64 64 Resp 20 20 B/P 104/59 100/62 100/62 Pulse Ox 93 92 O2 Delivery Room Air Room Air Room Air 06/24/16 06/24/16 06/24/16 06/24/16 00:51 01:21 03:03 07:20 Temp 97.4 97.7 97.4 97.7 Pulse 60 68 Resp 20 16 B/P 135/74 131/80 Pulse Ox 92 95 96 O2 Delivery Room Air Room Air Room Air Room Air 06/24/16 06/24/16 06/24/16 08:00 08:37 08:37 Pulse 68 68 B/P 131/80 131/80 O2 Delivery Room Air Intake and Output 06/23/16 06/23/16 06/24/16 15:00 23:00 07:00 Intake Total 0 ml Output Total 1100 ml Balance 0 ml -1100 ml KURTIS ADAMS MD Jun 24, 2016 09:29
[2016-06-24 10:43] VITALS: BP 130/80
--- NOTE | 2016-06-24 11:06 | PDOC ---
CARDIO Progress Notes Date and Time Date of Service 06/24/2016 Time of Evaluation 1140 Subjective Subjective: No Chest Pain, No shortness of breath, No Palpitations, No Dizziness, Other (slept well) Vitals Vitals Vital Signs Date Time Temp Pulse Resp B/P Pulse Ox O2 Delivery O2 Flow Rate FiO2 06/24/16 10:43 97.7 68 16 130/80 96 97.7 06/24/16 08:00 Room Air Weight Weight [ ] Input and Output Intake and Output Intake and Output 06/24/16 07:00 Intake Total 0 ml Output Total 1100 ml Balance -1100 ml Intake Oral 0 ml Output Urine Total 1100 ml # Voids 2 Laboratory Labs Laboratory Tests Test 06/23/16 13:45 06/23/16 21:30 06/24/16 05:00 White Blood Count 4.8x10^3/uL (4.0-11.0) 5.6x10^3/uL (4.0-11.0) Red Blood Count 4.73x10^6/uL (3.50-5.40) 4.29x10^6/uL (3.50-5.40) Hemoglobin 13.6g/dL (12.0-15.5) 12.4g/dL (12.0-15.5) Hematocrit 40.4% (36.0-47.0) 37.2% (36.0-47.0) Mean Corpuscular Volume 85fL (79-100) 87fL (79-100) Mean Corpuscular Hemoglobin 29pg (25-35) 29pg (25-35) Mean Corpuscular Hemoglobin Concent 34g/dL (31-37) 33g/dL (31-37) Red Cell Distribution Width 16.2% (11.5-14.5) 16.0% (11.5-14.5) Platelet Count 198x10^3/uL (140-400) 189x10^3/uL (140-400) Neutrophils (%) (Auto) 53% (31-73) 51% (31-73) Lymphocytes (%) (Auto) 36% (24-48) 37% (24-48) Monocytes (%) (Auto) 7% (0-9) 9% (0-9) Eosinophils (%) (Auto) 2% (0-3) 3% (0-3) Basophils (%) (Auto) 1% (0-3) 1% (0-3) Neutrophils # (Auto) 2.6x10^3uL (1.8-7.7) 2.8x10^3uL (1.8-7.7) Lymphocytes # (Auto) 1.8x10^3/uL (1.0-4.8) 2.1x10^3/uL (1.0-4.8) Monocytes # (Auto) 0.3x10^3/uL (0.0-1.1) 0.5x10^3/uL (0.0-1.1) Eosinophils # (Auto) 0.1x10^3/uL (0.0-0.7) 0.1x10^3/uL (0.0-0.7) Basophils # (Auto) 0.1x10^3/uL (0.0-0.2) 0.0x10^3/uL (0.0-0.2) Sodium Level 142mmol/L (136-145) 144mmol/L (136-145) Potassium Level 4.1mmol/L (3.5-5.1) 3.6mmol/L (3.5-5.1) Chloride Level 104mmol/L (98-107) 108mmol/L (98-107) Carbon Dioxide Level 28mmol/L (21-32) 26mmol/L (21-32) Anion Gap 10 (6-14) 10 (6-14) Blood Urea Nitrogen 17mg/dL (7-20) 17mg/dL (7-20) Creatinine 0.6mg/dL (0.6-1.0) 0.7mg/dL (0.6-1.0) Estimated GFR (Cockcroft-Gault) 101.0 84.5 Glucose Level 87mg/dL (70-99) 95mg/dL (70-99) Calcium Level 9.0mg/dL (8.5-10.1) 8.2mg/dL (8.5-10.1) Magnesium Level 2.2mg/dL (1.8-2.4) Total Bilirubin 0.4mg/dL (0.2-1.0) Direct Bilirubin 0.1mg/dL (0.0-0.2) Aspartate Amino Transf (AST/SGOT) 15U/L (15-37) Alanine Aminotransferase (ALT/SGPT) 18U/L (14-59) Alkaline Phosphatase 69U/L (46-116) Creatine Kinase 88U/L (26-192) Creatine Kinase MB (Mass) 1.1ng/mL (0.0-3.6) Creatine Kinase MB Relative Index 1.3% (0-4) Troponin I Quantitative < 0.017ng/mL (0.000-0.055) < 0.017ng/mL (0.000-0.055) < 0.017ng/mL (0.000-0.055) DY-Wwy-G-Type Natriuretic Peptide 139pg/mL (0-124) Total Protein 7.4g/dL (6.4-8.2) Albumin 3.9g/dL (3.4-5.0) Triglycerides Level 106mg/dL (0-150) Cholesterol Level 233mg/dL (0-200) LDL Cholesterol, Calculated 142mg/dL (0-100) VLDL Cholesterol, Calculated 21mg/dL (0-40) HDL Cholesterol 70mg/dL (40-60) Cholesterol/HDL Ratio 3.3 Thyroid Stimulating Hormone (TSH) 43.487uIU/mL (0.358-3.74) Physical Exam HEENT: Neck Supple W Full Motion Chest: Symmetric LUNGS: Clear to Auscultation Heart: S1S2, RRR (No significant ectopies overnight) Abdomen: Soft N/T Extremities: No Edema, No Calf Tenderness Neurology: alert, oriented, follow commands Assessment Assessment 1. Atypical Chest pain: Troponin series normal. EKG SR without significant acute changes. Doubt ACS. Reproducible tenderness to left chest. Likely MSK. Better after transdermal lidoderm. Defer to PCP. 2. Hx of NICM- Takotsubo syndrome: Noted via LHC 05/01/2016 with significant recovery within 24 hours with f/u TTE EF of 50-55%. F/U TTE pending today. If no significant chage, may DC this afternoon and f/u with outpt cardiology as scheduled in September. 3. CAD: mild disease per recent LHC. Continue with secondary prevention. ASA. 4. HTN: controlled. BB/ACEi 5. Hypothyroidism: TSH at 43. Pt has been taking replacement in the afternoon. Explained to take in AM with empty stomach for proper absorption. 6. Hx of anxiety: controlled. 7. Hx of TIA with PFO closure 8. HLP: has been off statin. Lipids not on goal and restart lipitor. LARRY PEÑA APRN Jun 24, 2016 11:06
[2016-06-24 11:07] VITALS: BP 117/75
--- NOTE | 2016-06-24 12:00 | CARD ---
APPROVED REPORT EXAM: Two-dimensional and M-mode echocardiogram with Doppler and color Doppler. Other Information Quality : GoodHR: 64bpm Rhythm : NSR INDICATION Chest pain, Takotsubo syndrome 2D DIMENSIONS RVDd2.7 (2.9-3.5cm)Left Atrium(2D)3.4 (1.6-4.0cm) IVSd0.8 (0.7-1.1cm)Aortic Root(2D)2.9 (2.0-3.7cm) LVDd4.8 (3.9-5.9cm)LVOT Diameter2.2 (1.8-2.4cm) PWd0.8 (0.7-1.1cm)LVDs3.4 (2.5-4.0cm) FS (%) 29.0 %SV58.5 ml LVEF(%)55.6 (>50%) Aortic Valve AoV Peak Marques.144.3cm/sAoV VTI35.2cm AO Peak GR.8.3mmHgLVOT Peak Marques.109.9cm/s AO Mean GR.5mmHgAVA (VMAX)2.82cm2 AI P 1/2 [id number] Mitral Valve MV E Vofjsnhb20.2cm/sMV E Peak Gr.3mmHg MV DECEL [id number] A Btpsntpa36.8cm/s MV E Mean Gr.1mmHgE/A Ratio1.1 MV A [id number] Pulmonary Valve PV Peak Nrajirce70.0cm/s Tricuspid Valve TR P. Izezieop111xo/sTR Peak Gr.29mmHg Pulmonary Vein S1 Pxokmbgo80.8cm/sD2 Gokyqgsv40.1cm/s PVa nayqnife90dcmv LEFT VENTRICLE The left ventricle is normal size. There is normal left ventricular wall thickness. The left ventricu lar systolic function is normal and the ejection fraction is within normal range. The Ejection Fracti on is 50-55%. There is normal LV segmental wall motion. The left ventricular diastolic function and f illing is normal for age. RIGHT VENTRICLE The right ventricle is normal size. There is normal right ventricular wall thickness. The right ventr icular systolic function is normal. ATRIA The left atrium size is normal. The right atrium size is normal. The interatrial septum is intact wit h no evidence for an atrial septal defect or patent foramen ovale as noted on 2-D or Doppler imaging. AORTIC VALVE The aortic valve is normal in structure and function. Doppler and Color Flow revealed mild aortic reg urgitation. There is no significant aortic valvular stenosis. MITRAL VALVE The mitral valve is normal in structure and function. There is no evidence of mitral valve prolapse. There is no mitral valve stenosis. Doppler and Color Flow revealed mild mitral regurgitation. TRICUSPID VALVE The tricuspid valve leaflets are thickened , but open well. Doppler and Color Flow revealed mild tric uspid regurgitation. The pulmonary artery systolic pressure is estimated at 33 mmHg. PULMONIC VALVE Doppler and Color Flow revealed mild pulmonic valvular regurgitation. There is no pulmonic valvular s tenosis. GREAT VESSELS The aortic root is normal in size. The ascending aorta is normal in size. The pulmonary artery is nor mal. The IVC is normal in size and collapses >50% with inspiration. PERICARDIAL EFFUSION There is no evidence of significant pericardial effusion. Critical Notification Critical Value: No <Conclusion> The left ventricle is normal size. The left ventricular systolic function is normal and the ejection fraction is within normal range. The Ejection Fraction is 50-55%. There is no significant aortic valvular stenosis. Doppler and Color Flow revealed mild aortic regurgitation. Doppler and Color Flow revealed mild mitral regurgitation. Doppler and Color Flow revealed mild tricuspid regurgitation. The pulmonary artery systolic pressure is estimated at 33 mmHg.
[2016-06-24 15:05] VITALS: BP 119/73
[2016-06-24] MEDS ORDERED: LEVO75TA5 PO (16:16)
--- NOTE | 2016-06-24 16:17 | DISCH ---
DISCHARGE INSTRUCTIONS Condition on Discharge Condition on Discharge: Stable Activity After Discharge Activity Instructions for Disc: No restrictions Diet after Discharge Diet after Discharge: Cardiac Contacting the DROscar after DC Call your doctor for: Concerns you may have Follow-Up Follow up with: PCP in 1 month Follow Up With: Dr Ling as arranged KURTIS ADAMS MD Jun 24, 2016 16:17
[2016-06-24] MEDS ORDERED: ATORVASTATIN CALCIUM 40 MG TABLET. PO SCH (21:00)
[2016-06-25] MEDS ORDERED: LEVOTHYROXINE 100 MCG TABLET PO SCH (07:00)
--- NOTE | 2016-06-26 21:39 | DS ---
DATE OF DISCHARGE: 06/24/2016 CHIEF COMPLAINT: Chest pain. HOSPITAL COURSE: The patient is a 65-year-old woman in fairly good state of health save for a diagnosis of takotsubo cardiomyopathy in April when her brother of an [place]. She had been worked up at that time, actually recovered her cardiac function within a day. Only minimal CAD had been noted on catheterization at that time. The patient presented to the Emergency Room with sharp fleeting chest pains in her left chest, which she stated where virtually identical to the pain that she had when she presented in April. Unlike the prior presentation; however, her episodes lasted just a few seconds and spontaneously resolved. The patient was once again seen by Cardiology, she was serially ruled out for ACS. A repeat echo showed good function and no wall motion abnormality. She was therefore deemed a noncardiac chest pain, possibly musculoskeletal and was deemed appropriate for home and outpatient followup. PHYSICAL EXAMINATION: Please refer to note from same day. DISCHARGE DATE: 06/24/2016 DISCHARGE DISPOSITION: To home. DISCHARGE CONDITION: Improved. DISCHARGE DIAGNOSES: 1. Atypical chest pain. 2. Musculoskeletal pain. DISCHARGE MEDICATIONS: Please refer to MAR. DISCHARGE INSTRUCTIONS: The patient will follow up with her PCP in [address] Ling as previously arranged. KURTIS ADAMS MD DR: UR/nts JOB#: [id number] / [id number] KEITH Fernandez
== END 2016-06-24 17:15 | disposition home or self-care (01) ==
LOC: ER 11:35 → INTOOBSV 14:40 → 5 NORTH 14:40
PROVIDERS: ADMIT Internal Medicine Hematology & Oncology; ATTEND Internal Medicine Hematology & Oncology
DX: R07.89 Other chest pain (principal); I51.81 Takotsubo syndrome; I25.10 Atherosclerotic heart disease of native coronary artery without angina pectoris; E78.5 Hyperlipidemia, unspecified; M19.90 Unspecified osteoarthritis, unspecified site; E03.9 Hypothyroidism, unspecified; F41.9 Anxiety disorder, unspecified; I11.9 Hypertensive heart disease without heart failure; K21.9 Gastro-esophageal reflux disease without esophagitis; I25.2 Old myocardial infarction; Z87.74 Personal history of (corrected) congenital malformations of heart and circulatory system; Z96.651 Presence of right artificial knee joint; Z86.73 Personal history of transient ischemic attack (TIA), and cerebral infarction without residual deficits; Z82.49 Family history of ischemic heart disease and other diseases of the circulatory system
CPT/HCPCS: 36415; 71010; 80048; 80061; 80076; 82553; 83735; 83880; 84443; 84484; 85027; 93005; 93306; 96361; 96374; 96376; 99285; G0378; J3010; J7030; G0379

== ENCOUNTER → 2016-10-07 | Outpatient (CLI) | payer BC ==
[~2016-10-07] MED LIST changes: +ASPI81TA2 PO; +LEVO75TA5 PO
--- NOTE | 2016-10-07 16:29 | CARD ---
APPROVED REPORT EXAM: Two-dimensional and M-mode echocardiogram with Doppler and color Doppler. Other Information Quality : GoodHR: 54bpm Rhythm : Bradycardia INDICATION Cardiomyopathy 2D DIMENSIONS RVDd3.4 (2.9-3.5cm)Left Atrium(2D)3.4 (1.6-4.0cm) IVSd0.9 (0.7-1.1cm)Aortic Root(2D)3.0 (2.0-3.7cm) LVDd4.6 (3.9-5.9cm)LVOT Diameter2.2 (1.8-2.4cm) PWd1.0 (0.7-1.1cm)LVDs2.8 (2.5-4.0cm) FS (%) 40.3 %SV69.9 ml Aortic Valve AoV Peak Marques.147.3cm/sAoV VTI36.5cm AO Peak GR.8.7mmHgLVOT Peak Marques.122.8cm/s AO Mean GR.5mmHgAVA (VMAX)3.15cm2 AI P 1/2 Vlnp179wk Mitral Valve MV E Mcpaqyuf39.8cm/sMV DECEL [id number] MV A Morzizjm61.3cm/sE/A Ratio1.4 MV A Ytnrnumk700je Pulmonary Valve PV Peak Kbkrfgas16.4cm/s Tricuspid Valve TR P. Qbsxufpd786mb/sTR Peak Gr.21mmHg Pulmonary Vein S1 Krkygkmn22.7cm/sD2 Wrgfxqsb69.3cm/s PVa zipxnxym83wket LEFT VENTRICLE The left ventricle is normal size. There is normal left ventricular wall thickness. The left ventricu lar systolic function is normal and the ejection fraction is within normal range. The Ejection Fracti on is 60-65%. There is normal LV segmental wall motion. The left ventricular diastolic function and f illing is normal for age. RIGHT VENTRICLE The right ventricle is normal size. There is normal right ventricular wall thickness. The right ventr icular systolic function is normal. ATRIA The left atrium size is normal. The right atrium size is normal. The interatrial septum is intact wit h no evidence for an atrial septal defect or patent foramen ovale as noted on 2-D or Doppler imaging. The patient has history of "PFO" closure device. AORTIC VALVE The aortic valve is mildly sclerotic. Doppler and Color Flow revealed mild aortic regurgitation. Ther e is no significant aortic valvular stenosis. MITRAL VALVE The mitral valve leaflets are mildly thickened. There is no evidence of mitral valve prolapse. There is no mitral valve stenosis. Doppler and Color Flow revealed trace mitral regurgitation. TRICUSPID VALVE Doppler and Color Flow revealed mild tricuspid regurgitation. The pulmonary artery systolic pressure is estimated at 24 mmHg. PULMONIC VALVE Doppler and Color Flow revealed trace pulmonic valvular regurgitation. There is no pulmonic valvular stenosis. GREAT VESSELS The aortic root is normal in size. The ascending aorta is normal in size. The pulmonary artery is nor mal. The IVC is normal in size and collapses >50% with inspiration. PERICARDIAL EFFUSION There is no evidence of significant pericardial effusion. Critical Notification Critical Value: No <Conclusion> The left ventricle is normal size. The left ventricular systolic function is normal and the ejection fraction is within normal range. The Ejection Fraction is 60-65%. There is normal left ventricular wall thickness. The interatrial septum is intact with no evidence for an atrial septal defect or patent foramen ovale as noted on 2-D or Doppler imaging. The patient has history of "PFO" closure device. There is no significant aortic valvular stenosis. Doppler and Color Flow revealed mild aortic regurgitation. Doppler and Color Flow revealed trace mitral regurgitation. Doppler and Color Flow revealed mild tricuspid regurgitation. The pulmonary artery systolic pressure is estimated at 24 mmHg.
== END | disposition home or self-care (01) ==
LOC: ECHO 11:13
PROVIDERS: ATTEND Internal Medicine Cardiovascular Disease
DX: I08.3 Combined rheumatic disorders of mitral, aortic and tricuspid valves (principal)
CPT/HCPCS: 93306

== ENCOUNTER 2020-01-31 21:23 | Emergency (ER) | payer SELFPAY ==
[~2020-01-31] VITALS: Ht 157.5 cm; Wt 72.7 kg
[~2020-01-31 21:23] MED LIST changes: +ASPI-630 PO; -ASPI81TA2 PO; +OXYB5TAB10 PO; -OXYB5TAB7 PO
--- NOTE | 2020-01-31 21:44 | PHYS DOC ---
Past Medical History Past Medical History: Hypothyroid, [place], TIA Additional Past Medical Histor: PFO CLOSURE Past Surgical History: , Hysterectomy, Knee Replacement, Tonsillectomy Additional Past Surgical Histo: RIGHT KNEE REPLACEMENT Smoking Status: Former Smoker Alcohol Use: Occasionally Drug Use: None General Adult EDM: Chief Complaint: SHORTNESS OF BREATH HPI: HPI: Patient is a 69 year old female presents with a chief complaint of shortness of breath and cough. Patient has had symptoms for last 5 days and was diagnosed 3 days ago with COVID-19. Shortness of breath started last day and a half. Patient describes pain in her chest and her back is worse with deep breaths. Patient describes diffuse myalgias and fever, symptoms are worse with deep breath and activity. Symptoms are somewhat better with Tylenol. Review of Systems: Review of Systems: Constitutional: Complains of fever Eyes: Denies change in visual acuity. [] HENT: Denies nasal congestion or sore throat. [] Respiratory: Complains of cough and shortness of breath Cardiovascular: Complains of chest pain with deep breaths GI: Complains of mild abdominal discomfort : Denies dysuria. [] Musculoskeletal: Complains of diffuse myalgias Integument: Denies rash. [] Neurologic: Denies headache, focal weakness or sensory changes. [] Endocrine: Denies polyuria or polydipsia. [] Lymphatic: Denies swollen glands. [] Psychiatric: Denies depression or anxiety. [] Heart Score: Risk Factors: Risk Factors: DM, Current or recent (<one month) smoker, HTN, HLP, family history of CAD, obesity. Risk Scores: Score 0 - 3: 2.5% MACE over next 6 weeks - Discharge Home Score 4 - 6: 20.3% MACE over next 6 weeks - Admit for Clinical Observation Score 7 - 10: 72.7% MACE over next 6 weeks - Early Invasive Strategies Allergies: Allergies: Allergies Coded Allergies Type Severity Reaction Last Updated Verified No Known Drug Allergies 04/30/16 No Physical Exam: PE: Constitutional: Well developed, well nourished, no respiratory distress HENT: Normocephalic, atraumatic, bilateral external ears normal, no trismus nose normal. [] Eyes: PERRLA, EOMI, conjunctiva normal, no discharge. [] Neck: Normal range of motion, no tenderness, supple, no stridor. [] Cardiovascular:Heart rate regular rhythm, peripheral pulses intact, cap refill brisk Lungs & Thorax: No respiratory distress mild decreased breath sounds Abdomen: , soft, no tenderness, no masses, no pulsatile masses. [] Skin: Warm, dry, no erythema, no rash. [] Back: No tenderness, no CVA tenderness. [] Extremities: No tenderness, no cyanosis, no clubbing, ROM intact, no edema. [] Neurologic: Alert and oriented X 3, normal motor function, normal sensory function, no focal deficits noted. [] Psychologic: Affect normal, judgement normal, mood normal. [] Current Patient Data: Labs: Laboratory Tests Test 01/31/20 22:20 White Blood Count 3.3 x10^3/uL Red Blood Count 4.55 x10^6/uL Hemoglobin 12.8 g/dL Hematocrit 38.2 % Mean Corpuscular Volume 84 fL Mean Corpuscular Hemoglobin 28 pg Mean Corpuscular Hemoglobin Concent 34 g/dL Red Cell Distribution Width 13.9 % Platelet Count 141 x10^3/uL Neutrophils (%) (Auto) 77 % Lymphocytes (%) (Auto) 16 % Monocytes (%) (Auto) 7 % Eosinophils (%) (Auto) 0 % Basophils (%) (Auto) 0 % Neutrophils # (Auto) 2.6 x10^3/uL Lymphocytes # (Auto) 0.5 x10^3/uL Monocytes # (Auto) 0.2 x10^3/uL Eosinophils # (Auto) 0.0 x10^3/uL Basophils # (Auto) 0.0 x10^3/uL Prothrombin Time 12.9 SEC Prothromb Time International Ratio 1.0 Activated Partial Thromboplast Time 28 SEC Fibrinogen 587 mg/dL D-Dimer (Eufemia) 0.48 ug/mlFEU Sodium Level 135 mmol/L Potassium Level 3.8 mmol/L Chloride Level 100 mmol/L Carbon Dioxide Level 27 mmol/L Anion Gap 8 Blood Urea Nitrogen 11 mg/dL Creatinine 0.6 mg/dL Estimated GFR (Cockcroft-Gault) 99.7 BUN/Creatinine Ratio 18 Glucose Level 105 mg/dL Lactic Acid Level 0.9 mmol/L Calcium Level 8.6 mg/dL Ferritin 184 ng/mL Total Bilirubin 0.5 mg/dL Aspartate Amino Transf (AST/SGOT) 50 U/L Alanine Aminotransferase (ALT/SGPT) 45 U/L Alkaline Phosphatase 68 U/L Lactate Dehydrogenase 284 U/L Creatine Kinase 20 U/L Troponin I Quantitative < 0.017 ng/mL C-Reactive Protein, Quantitative 80.9 mg/L [id number] Natriuretic Peptide 41 pg/mL Total Protein 6.5 g/dL Albumin 2.8 g/dL Albumin/Globulin Ratio 0.8 Lipase 92 U/L Procalcitonin < 0.10 ng/mL Current Medications Medications (Trade) Dose Ordered Sig/Rodrigue Route PRN Reason Start Time Stop Time Status Last Admin Dose Admin Ketorolac Tromethamine (Toradol 15mg Vial) 15 mg 1X ONCE IVP 01/31/20 22:30 01/31/20 22:31 DC 01/31/20 22:11 Vital Signs: Vital Signs Date Time Temp Pulse Resp B/P (MAP) Pulse Ox O2 Delivery O2 Flow Rate FiO2 01/31/20 21:52 100.6 101 18 141/65 (90) 95 Room Air 100.6 EKG: EKG: EKG interpreted by sinus tach with a rate of 102 left axis deviation normal ST segments normal intervals[] Radiology/Procedures: Radiology/Procedures: [][facility] [address] [place], [place] [id number] IMAGING REPORT Signed PATIENT: ARACELIS OLSENCCOUNT: [id number] : 1950 LOCATION: ER AGE: 69 SEX: F EXAM STATUS: REG ER ORD. PHYSICIAN: AIXA REED MD REASON: COVID, SOA PROCEDURE: PORTABLE CHEST 1V Exam: Chest one view INDICATION: Covid, short of air TECHNIQUE: Frontal view of the chest Comparisons: None FINDINGS: The cardiomediastinal silhouette and pulmonary vessels are within normal limits. The lung and pleural spaces are clear. IMPRESSION: No acute cardiopulmonary process. Electronically signed by: Suzy Swartz MD (01/31/2020 10:29 PM) [id number] DICTATED and SIGNED BY: SUZY SWARTZ MD DATE: 01/31/20 2229 Impression: COVID-19 CRITERIA: The patient was evaluated during the global COVID-19 pandemic, and that diagnosis was suspected/considered upon their initial presentation. Their evaluation, treatment and testing was consistent with current guidelines for patients who present with complaints or symptoms that may be related to COVID-19. Course & Med Decision Making: Course & Med Decision Making Pertinent Labs and Imaging studies reviewed. (See chart for details) [] 69-year-old female who is COVID positive presents with chief complaint of not feeling well with some shortness of breath and flulike symptoms. Patient says she feels washed out and tired. Initially she had a low-grade temperature and was slightly tachycardic on reassessment heart rate in the 80s, respiratory rate is less than 20 and her pulse ox is 95% on room air. Her breathing is unlabored. Blood pressure is stable. Laboratory evaluation shows an elevated CRP but normal d-dimer LDH is mildly elevated. Patient does not have indication for admission to hospital at this time. Return precautions given. Dragon Disclaimer: Dragon Disclaimer: This electronic medical record was generated, in whole or in part, using a voice recognition dictation system. Departure Departure Impression: Primary Impression: COVID-19 Additional Impression: Dyspnea Disposition: 01 HOME, SELF-CARE Condition: STABLE Referrals: KEITH JENKINS DO (PCP) 2-3 days Patient Instructions: Fever Additional Instructions: You have been tested for or diagnosed with COVID-19. It is an infection caused by a new type of coronavirus. COVID-19 will cause cold-like or mild flu symptoms in most. It can cause more severe symptoms like problems breathing in some. There is no treatment for COVID-19. The body will clear the infection over time. Self-care will help to ease discomfort. Steps to Take: Self-Care Rest as needed. Healthy habits may help you feel better. Steps include: Choose healthy foods including fruits and vegetables. Drink water throughout the day. Get plenty of sleep each night. If you smoke, try to quit. It may ease breathing. Avoid alcohol. Keep Others Healthy The virus can spread to others. Droplets are released every time you sneeze or cough. The droplets can get into the mouth, nose, or eyes of people near you and lead to infection. To lower the chances of spreading COVID-19 to others: Stay at home until your doctor has said it is safe to leave. If you tested positive this will mean staying isolated until both of the following are true: At least 7 days have passed since the start of illness. You are free of fever for at least 72 hours without the use of medicine. During this time: - Avoid public areas, events, or transportation. Do not return to work or school until your doctor has said it is safe to do so. - Call ahead if you need to go to a medical center. Let them know you may have COVID-19. It will help them guide you where to go. They may also ask you to wear a facemask when you come to the office. - If you call for emergency medical services, let them know you may have COVID- 19. While at home: - Try to avoid close contact with others. Stay about 6 feet away. - If possible, spend most of your time in a separate room from others. - Use a face mask if you will be in close contact with others such as sharing a room or vehicle. - Have someone wipe down common surfaces in the home. Use household ring conductor every day on areas like doorknobs, counters, or sinks. - Cough or sneeze into a tissue. Throw the tissue away right after use. If a tissue is not available, cough or sneeze into your elbow. - Wash your hands often. Wash them after sneezing or coughing. Use soap and water and wash for at least 20 seconds. Alcohol based hand sewer cleaner can be used if soap and water is not available. - Do not prepare food for others. Avoid sharing personal items like forks, spoons, or toothbrushes. - Avoid close contact with pets while you are sick. There is no evidence of the virus passing to pets. This is a safety step until more is known about this virus. Isolation can be frustrating. Social interaction can help. Keep in touch with friends and family through phone and tech options. You can still interact with others in your home, just keep a safe distance of about 6 feet. Follow-up: Your doctors office will check in with you to see if there are any changes in your health. You may be asked to keep track of symptoms to share with them. They will also let you know when you are clear to be in public again. Problems to Look Out For: Contact your doctor if your recovery is not going as you expect. Get emergency care if you have problems such as: - Trouble breathing - Nonstop chest pain or pressure - Changes in awareness, confusion, or problems waking - Lips or face have bluish color - Worsening of symptoms If you think you have an emergency, call for emergency medical services right away. As taken from [facility] EMERGENCY DEPARTMENT GENERAL DISCHARGE INSTRUCTIONS Thank you for coming to [facility] Emergency Department (ED) today and trusting us with you care. We trust that you had a positivie experience in our Emergency Department. If you wish to speak to the department management, you may call the Director at [phone]. YOUR FOLLOW UP INSTRUCTIONS ARE FOLLOWS: 1. Do you have a private Doctor? If you do not have a private doctor, please ask for a resource list of physicians or clinics that may be able to assist you with follow up care. 2. The Emergency Physicain has interpreted your x-rays. The X-Ray specialist will also review them. If there is a change in the findings, you will be notified in 48 hours when at all possible. 3. A lab test or culture has been done, your results will be reviewed and you will be notified if you need a change in treatment. ADDITIONAL INSTRUCTIONS AND INFORMATION: 1. Your care today has been supervised by a physician who is specially trained in emergency care. Many problems require more than one evaluation for a complete diagnosis and treatment. We recommend that you schedule your follow up appointment as recommended to ensure complete treatment of you illness or injury. If you are unable to obtain follow up care and continue to have a problem, or if your consition worsens, we recommend that you return to the ED. 2. We are not able to safely determine your condition over the phone nor are we able to give sound medical advice over the phone. For these safety reasons, if you call for medical advice we will ask you to come to the ED for further evaluation. 3. If you have any questions regarding these discharge instructions please call the ED at [phone]. SAFETY INFORMATION: In the interest of safety, wellness, and injury prevention; we encourage you to wear your sealbelt, if you smoke; quite smoking, and we encourage family to use a protective helmet for bicycling and other sporting events that present an increased risk for head injury. IF YOUR SYMPTOMS WORSEN OR NEW SYMPTOMS DEVELOP, OR YOU HAVE CONCERNS ABOUT YOUR CONDITION; OR IF YOUR CONDITION WORSENS WHILE YOU ARE WAITING FOR YOUR FOLLOW UP APPOINTMENT; EITHER CONTACT YOUR PRIMARY CARE DOCTOR, THE PHYSICIAN WHOSE NAME AND NUMBER YOU WERE GIVEN, OR RETURN TO THE ED IMMEDIATELY. Scripts Guaifenesin/Codeine Phosphate (Codeine-Guaifen 10-100 mg/5 ml) 120 Ml Liquid 10-May ML PO Q6HRS PRN for cough and congestion MDD 60 Milliliter(s) for 4 Days, #240 ML 0 Refills Prov: AIXA REED MD 02/01/20 Justicifation of Admission Dx: Justifications for Admission: Justification of Admission Dx: N/A COVID-19 Assessment: COVID-19 Patient Risks: Age 65 or older: Yes Sign of co-morbidity: Yes Exp to person + for COVID: Yes Exp to PUI: Yes Travel from affected area: No Lower respiratory symptoms: Yes Fever: Yes PPE Use: Full PPE with N95 mask or PAPR: Yes AIXA REED MD Jan 31, 2020 21:44
[2020-01-31] MEDS ORDERED: KETOROLAC 15 MG/ML VIAL. IVP ONE (22:30)
--- NOTE | 2020-01-31 22:32 | RAD ---
Exam: Chest one view INDICATION: Covid, short of air TECHNIQUE: Frontal view of the chest Comparisons: None FINDINGS: The cardiomediastinal silhouette and pulmonary vessels are within normal limits. The lung and pleural spaces are clear. IMPRESSION: No acute cardiopulmonary process. Electronically signed by: Suzy Shrestha MD (01/31/2020 10:29 PM) [id number]
[2020-01-31 22:33] LABS: BASO % 0 % (0-3); EOS % 0 % (0-3); HEMATOCRIT 38.2 % (36.0-47.0); HEMOGLOBIN 12.8 g/dL (12.0-15.5); LYMPH # 0.5 x10^3/uL (1.0-4.8); LYMPH % 16 % (24-48); MEAN CORPUSCULAR HEMOGLOBIN 28 pg (25-35); MEAN CORPUSCULAR HGB CONC 34 g/dL (31-37); MEAN CORPUSCULAR VOLUME 84 fL (79-100); MONO # 0.2 x10^3/uL (0.0-1.1); MONO % 7 % (0-9); NEUT # 2.6 x10^3/uL (1.8-7.7); NEUT % 77 % (31-73); PLATELET COUNT 141 x10^3/uL (140-400); RED BLOOD COUNT 4.55 x10^6/uL (3.50-5.40); RED CELL DISTRIBUTION WIDTH 13.9 % (11.5-14.5); WHITE BLOOD COUNT 3.3 x10^3/uL (4.0-11.0)
[2020-01-31 22:46] LABS: CALCIUM 8.6 mg/dL (8.5-10.1); CREATININE 0.6 mg/dL (0.6-1.0); GFR 99.7; POTASSIUM 3.8 mmol/L (3.5-5.1); PROTHROMBIN TIME PATIENT 12.9 SEC (11.7-14.0)
[2020-01-31 22:51] LABS: D-DIMER 0.48 ug/mlFEU (0.00-0.50)
[2020-01-31 23:04] LABS: ALBUMIN 2.8 g/dL (3.4-5.0); ALBUMIN/GLOBULIN RATIO 0.8 (1.0-1.7); C-REACTIVE PROTEIN 80.9 mg/L (0-3.3); TOTAL BILIRUBIN 0.5 mg/dL (0.2-1.0); TOTAL PROTEIN 6.5 g/dL (6.4-8.2)
[2020-02-01] MEDS ORDERED: GUAI120L35 PO (00:24)
[2020-02-01 00:35] VITALS: BP 104/58
--- NOTE | 2020-02-04 04:21 | EKG ---
[facility] [address] [place] [address] Test Date: 2020-01-31 Test Time: 21:57:04 Pat Name: ARACELIS OLSEN Department: Room: Gender: F Epic Analyst: : 1950 Requested By: AIXA REED Order Number: [id number] Reading MD: Measurements Intervals Dixon Rate: 102 P: 49 WI: 162 QRS: -9 QRSD: 78 T: 37 QT: 308 QTc: 405 Interpretive Statements SINUS TACHYCARDIA LEFTWARD AXIS OTHERWISE NORMAL ECG RI6.02 No previous ECG available for comparison
== END 2020-02-01 00:35 | disposition home or self-care (01) ==
LOC: ER 21:23
DX: U07.1 COVID-19 (principal); R06.02 Shortness of breath; E03.9 Hypothyroidism, unspecified; I25.2 Old myocardial infarction; Z86.73 Personal history of transient ischemic attack (TIA), and cerebral infarction without residual deficits; Z87.891 Personal history of nicotine dependence
CPT/HCPCS: 36415; 71045; 80053; 82550; 82728; 83605; 83615; 83690; 83880; 84145; 84466; 84484; 85025; 85379; 85384; 85610; 85730; 86140; 87040; 96374; 99285; J1885